=== PATIENT | male | born 1950 | race Asian ===

== ENCOUNTER → 2017-04-29 | Outpatient (CLI) | payer MEDICARE ==
[~2017-04-29] MED LIST: KETAMINE HCL 100 MG/ML 5ML VIAL IJ ONE
== END | disposition home or self-care (01) ==
LOC: RAH 11:01
PROVIDERS: ATTEND Internal Medicine
DX: M47.895 Other spondylosis, thoracolumbar region (principal); R63.4 Abnormal weight loss
CPT/HCPCS: 71046

== ENCOUNTER → 2018-06-26 | Outpatient (CLI) | payer MEDICARE | END | disposition home or self-care (01) | LOC: RAH 14:01 | PROVIDERS: ATTEND Internal Medicine | DX: M18.12 Unilateral primary osteoarthritis of first carpometacarpal joint, left hand (principal); M25.552 Pain in left hip; M25.551 Pain in right hip; M25.532 Pain in left wrist; M25.531 Pain in right wrist; M79.642 Pain in left hand | CPT/HCPCS: 73110; 73130; 73522 ==